=== PATIENT | female | born 1995 | race Caucasian/White ===

== ENCOUNTER 2019-10-29 17:14 | Emergency (ER) | payer BC ==
[2019-10-29 18:15] VITALS: BP 124/82
--- NOTE | 2019-10-29 18:16 | UC ---
Throat Pain/Nasal Christiano HPI - HPI Summary HPI Summary: 24 yo woman c/o sore throat and fever starting today. Works at [employer], no other exposures. No cough, headache, myalgias or diarrhea. - History of Current Complaint Stated Complaint: THROAT,FEVER Time Seen by Provider: 10/29/19 17:53 Hx Obtained From: Patient Hx Last Menstrual Period: mirena ?: No Onset/Duration: Sudden Onset, Lasting Hours - 8 Severity: Mild Pain Intensity: 2 Cough: None Associated Signs & Symptoms: Positive: Nasal Discharge - with allergies, Fever. Negative: FB Sensation, Drooling, Wheezing, Hoarseness, Sinus Discomfort Related History: Seasonal Allergies - Allergies/Home Medications Allergies/Adverse Reactions: Allergies Allergy/AdvReac Type Severity Reaction Status Date / Time No Known Allergies Allergy Verified 10/29/19 18:01 Home Medications: Home Medications Acetaminophen [Tylenol Extra Strength] 1,000 mg PO Q4H PRN 10/29/19 [History Confirmed 10/29/19] Amoxicillin PO (*) [Amoxicillin 875 MG (*)] 875 mg PO BID #20 tab 10/29/19 [Rx] Loratadine [Claritin] 10 mg PO DAILY 10/29/19 [History Confirmed 10/29/19] PMH/Surg Hx/FS Hx/Imm Hx Previously Healthy: Yes - Surgical History Surgical History: None - Family History Known Family History: Negative: Cardiac Disease, Hypertension, Diabetes - Social History Occupation: Employed Full-time Lives: With Family Alcohol Use: None Substance Use Type: None Smoking Status (MU): Light Every Day Tobacco Smoker Type: Cigarettes Amount Used/How Often: 5-6 cigs daily Review of Systems All Other Systems Reviewed And Are Negative: Yes Constitutional: Positive: Fever ENT: Positive: Sore Throat, Nasal Discharge Is Patient Immunocompromised?: No Physical Exam Triage Information Reviewed: Yes Appearance: No Pain Distress, Ill-Appearing - mild, Obese Vital Signs Reviewed: Yes Eyes: Positive: Conjunctiva Clear ENT: Positive: Pharyngeal erythema, TMs normal Neck: Positive: Tenderness @ - left> right anterior cervical nodes., Enlarged Nodes @ - bilaterally Respiratory Exam: Normal Cardiovascular Exam: Normal Musculoskeletal Exam: Normal Neurological Exam: Normal Psychological Exam: Normal Skin Exam: Normal Diagnostics - Laboratory Lab Results: Rapid strep is positive Throat Pain/Nasal Course/Dx - Differential Dx/Diagnosis Differential Diagnosis/HQI/PQRI: Peritonsillar Abscess, Pharyngitis, Tonsillitis , URI Provider Diagnosis: Strep pharyngitis Discharge ED - Sign-Out/Discharge Documenting (check all that apply): Patient Departure All imaging exams completed and their final reports reviewed: No Studies - Discharge Plan Condition: Stable Disposition: HOME Prescriptions: Amoxicillin PO (*) [Amoxicillin 875 MG (*)] 875 mg PO BID #20 tab Patient Education Materials: Strep Throat (ED) Additional Instructions: NEILMED SINUS RINSE: CHECK OUT AT [place] Saline nasal wash helps with mucous, allergies and congestion. It can be used up to twice a day or only as needed. Use lukewarm tap water. It does not have to be sterilized or distilled water. Tilt your head straight down into the sink. Do 1/3 on each side and snort out of both nostrils. Repeat the process with 1/6 of the bottle on each side with snorting in between to finish the solution in the bottle - Billing Disposition and Condition Condition: STABLE Disposition: Home
[2019-10-29] MEDS ORDERED: Amoxicillin PO (*) 500 MG CAP PO ONE (18:24)
== END 2019-10-29 18:31 | disposition home or self-care (01) ==
LOC: UCCORT 17:14
DX: J02.0 Streptococcal pharyngitis (principal); F17.210 Nicotine dependence, cigarettes, uncomplicated
CPT/HCPCS: 87651; 99202; A9270-GY; G0463